=== PATIENT | male | born 1960 | race African-American/Black ===

== ENCOUNTER 2017-03-03 06:20 | Emergency (ER) | payer MEDICARE, OTHER ==
[~2017-03-03] VITALS: Ht 172.7 cm; Wt 69.0 kg
[~2017-03-03 06:20] MED LIST: BUPR100T5 PO; CARI350T27 PO; GABA300C PO; METO1TAB26 PO; OMEP20CA10 PO; OXYC30TA89 PO; QUET50TA11 PO; TIZA4CAP6 PO
[2017-03-03] MEDS ORDERED: MORPHINE SULFATE 10 MG/ML CPJ IM ONE (07:00)
[2017-03-03 09:39] VITALS: BP 169/117
== END 2017-03-03 10:51 | disposition home or self-care (01) ==
LOC: ER 06:47
DX: M54.5 Low back pain (principal); R11.0 Nausea; R42 Dizziness and giddiness; J44.9 Chronic obstructive pulmonary disease, unspecified; I10 Essential (primary) hypertension; W18.30XA Fall on same level, unspecified, initial encounter; Y93.02 Activity, running; Y92.89 Other specified places as the place of occurrence of the external cause; Y99.8 Other external cause status
CPT/HCPCS: 70450; 72125; 72131; 96372; 99284; J2270

== ENCOUNTER 2017-03-20 03:31 | Emergency (ER) | payer MEDICARE, OTHER ==
[~2017-03-20] VITALS: Ht 172.7 cm; Wt 77.0 kg
[2017-03-20] MEDS ORDERED: LORAZEPAM 1MG TABLET PO ONE (04:00)
[2017-03-20 04:31] LABS: HEMATOCRIT. 36.1 % (42.0-52.0); HEMOGLOBIN. 12.6 g/dL (14.0-18.0); MEAN CORPUSCULAR HEMOGLOBIN 30.6 pg (28.0-32.0); PLATELET 157 x1000/uL (130-400); RED BLOOD CELL COUNT 4.11 mill/uL (4.7-6.1)
[2017-03-20 04:39] LABS: CHLORIDE 98 mEq/L (98-107)
[2017-03-20 04:48] LABS: INR 1.1; PARTIAL THROMBOPLASTIN TIME 26.3 sec (24.0-34.0); PROTHROMBIN TIME 11.3 sec
[2017-03-20] MEDS ORDERED: DIVALPROEX SODIUM 500MG DR TABLET PO NR (05:30)
[2017-03-20 05:38] LABS: CARBON DIOXIDE 26 mEq/L (21-32)
[2017-03-20 05:54] LABS: ETHANOL BLOOD < 10 mg/dL
[2017-03-20] MEDS ORDERED: SODIUM CHLORIDE 0.9% 2,000 ML IV ONE (06:00)
[2017-03-20 06:01] LABS: PLATELET ESTIMATE NORMAL
[2017-03-20 08:32] LABS: CLARITY URINE CLEAR (CLEAR); COLOR URINE YELLOW (YELLOW); GLUCOSE URINE NEGATIVE (NEGATIVE); KETONES URINE NEGATIVE (NEGATIVE); LEUKOCYTE ESTERASE URINE NEGATIVE (NEGATIVE); NITRITE URINE NEGATIVE (NEGATIVE); OCCULT BLOOD URINE NEGATIVE (NEGATIVE); PROTEIN URINE TRACE (NEGATIVE); SPECIFIC GRAVITY URINE 1.018 (1.005-1.030); UROBILINOGEN URINE 0.2 E.U./dL (0.2-1.0)
[2017-03-20 08:42] LABS: *AMPHETAMINES SCREEN URINE NEGATIVE (NEGATIVE); *BARBITURATES SCREEN URINE NEGATIVE (NEGATIVE); *BENZODIAZEPINES SCREEN URINE NEGATIVE (NEGATIVE); *COCAINE SCREEN URINE NEGATIVE (NEGATIVE); CANNABINOID URINE SCREEN NEGATIVE (NEGATIVE); METHADONE URINE SCREEN NEGATIVE (NEGATIVE); OPIATES URINE SCREEN PRESUMTIVE POSITIVE (NEGATIVE); PHENCYCLIDINE URINE SCREEN NEGATIVE (NEGATIVE)
[2017-03-20 09:29] VITALS: BP 114/51
== END 2017-03-20 12:43 | disposition home or self-care (01) ==
LOC: ER 03:31
DX: F23 Brief psychotic disorder (principal); F20.9 Schizophrenia, unspecified
CPT/HCPCS: 36415; 70450; 80053; 80165; 80305; 80307; 80329; 81001; 85025; 85610; 85730; 93005; 96360; 96361; 99285; G0482; J7030

== ENCOUNTER 2017-03-21 12:15 | Inpatient (IN) | payer MEDICARE, OTHER ==
[~2017-03-21] VITALS: Ht 172.7 cm; Wt 66.7 kg
[2017-03-21 13:09] LABS: CLARITY URINE CLEAR (CLEAR); COLOR URINE YELLOW (YELLOW); GLUCOSE URINE NEGATIVE (NEGATIVE); KETONES URINE NEGATIVE (NEGATIVE); LEUKOCYTE ESTERASE URINE NEGATIVE (NEGATIVE); NITRITE URINE NEGATIVE (NEGATIVE); OCCULT BLOOD URINE NEGATIVE (NEGATIVE); PROTEIN URINE TRACE (NEGATIVE); UROBILINOGEN URINE 0.2 E.U./dL (0.2-1.0)
[2017-03-21 13:17] LABS: HEMATOCRIT. 32.1 % (42.0-52.0); HEMOGLOBIN. 10.8 g/dL (14.0-18.0); MEAN CORPUSCULAR HEMOGLOBIN 30.1 pg (28.0-32.0); MEAN CORPUSCULAR VOLUME 89.5 fL (80.0-94.0); MEAN PLATELET VOLUME 8.4 fl (7.4-10.4); PLATELET 117 x1000/uL (130-400); RED BLOOD CELL COUNT 3.59 mill/uL (4.7-6.1); RED CELL DISTRIBUTION WIDTH 15.9 % (11.6-14.6)
[2017-03-21 13:22] LABS: CHLORIDE 104 mEq/L (98-107)
[2017-03-21 13:31] LABS: CARBON DIOXIDE 26 mEq/L (21-32); ETHANOL BLOOD < 10 mg/dL
[2017-03-21 13:38] LABS: *AMPHETAMINES SCREEN URINE NEGATIVE (NEGATIVE); *BARBITURATES SCREEN URINE NEGATIVE (NEGATIVE); *BENZODIAZEPINES SCREEN URINE PRESUMTIVE POSITIVE (NEGATIVE); *COCAINE SCREEN URINE NEGATIVE (NEGATIVE); CANNABINOID URINE SCREEN NEGATIVE (NEGATIVE); METHADONE URINE SCREEN NEGATIVE (NEGATIVE); OPIATES URINE SCREEN PRESUMTIVE POSITIVE (NEGATIVE); PHENCYCLIDINE URINE SCREEN NEGATIVE (NEGATIVE)
[2017-03-21 13:41] LABS: PLATELET ESTIMATE SLIGHTLY DECREASED
[2017-03-21] MEDS ORDERED: ONDANSETRON HCL 4MG/2ML VIAL IV PRN ×2 (17:15→23:45)
[2017-03-21] MEDS ORDERED: ENOXAPARIN 40MG/0.4ML SYR SUBCUT SCH ×2 (17:15→20:15)
[2017-03-21] MEDS ORDERED: SODIUM CHLORIDE 0.9% 1,000 ML IV SCH (17:15)
[2017-03-21] MEDS ORDERED: CLONIDINE 0.1MG TABLET PO PRN (17:15)
[2017-03-21] MEDS ORDERED: IPRATROPIUM/ALBUTEROL 0.5-3(2.5)MG/3ML NEB INH PRN ×2 (17:15→23:45)
[2017-03-21] MEDS ORDERED: MAGNESIUM/ALUMINUM HYDROXIDE/SIMETHICONE 30ML UDC PO PRN ×2 (17:15→23:45)
[2017-03-21] MEDS ORDERED: DOCUSATE SODIUM 100MG CAPSULE PO PRN (17:15)
[2017-03-21] MEDS ORDERED: ACETAMINOPHEN 325MG TABLET PO PRN ×2 (17:15→23:45)
[2017-03-21] MEDS ORDERED: HYDROCODONE/ACETAMINOPHEN 5/325MG TABLET PO PRN (17:15)
[2017-03-21 20:30] VITALS: BP 146/89
[2017-03-21] MEDS ORDERED: OXYCODONE HCL 15 MG PO SCH (22:15)
[2017-03-21] MEDS: CARISOPRODOL 350 MG TABLET PO SCH (23:53)
[2017-03-21] MEDS: QUETIAPINE FUMARATE 50MG TABLET PO SCH (23:53)
[2017-03-21] MEDS: HYDROCODONE/ACETAMINOPHEN 5/325MG TABLET PO PRN (23:53)
[2017-03-21] MEDS: SODIUM CHLORIDE 0.9% 1,000 ML IV SCH (23:54)
[2017-03-22] VITALS: BP 129/70
[2017-03-22 04:00] VITALS: BP 173/79
[2017-03-22] MEDS: CLONIDINE 0.1MG TABLET PO PRN (04:24)
[2017-03-22] MEDS: OXYCODONE HCL 5MG TABLET PO PRN ×2 (04:25→20:46)
[2017-03-22] MEDS: CARISOPRODOL 350 MG TABLET PO SCH ×3 (06:33→22:43)
[2017-03-22 06:34] LABS: BASOPHILS % 0.6 % (0.0-2.0); EOSINOPHILS % 0.9 % (0.0-5.0); HEMATOCRIT. 31.7 % (42.0-52.0); LYMPHOCYTES % 37.7 % (20.0-50.0); MEAN CORPUSCULAR HEMOGLOBIN 30.3 pg (28.0-32.0); MEAN CORPUSCULAR VOLUME 87.6 fL (80.0-94.0); MEAN PLATELET VOLUME 8.1 fl (7.4-10.4); MONOCYTES % 12.1 % (2.0-8.0); NEUTROPHILS % 48.7 % (40.0-76.0); PLATELET 104 x1000/uL (130-400); RED BLOOD CELL COUNT 3.61 mill/uL (4.7-6.1); RED CELL DISTRIBUTION WIDTH 15.7 % (11.6-14.6)
[2017-03-22 08:00] VITALS: BP 114/66
[2017-03-22] MEDS: TIZANIDINE HCL 4MG TABLET PO SCH ×2 (08:39→16:55)
[2017-03-22] MEDS: GABAPENTIN 300MG CAPSULE PO SCH ×3 (08:39→16:56)
[2017-03-22] MEDS: HYDROCHLOROTHIAZIDE 25MG TABLET PO SCH (08:39)
[2017-03-22] MEDS: BUPROPION HCL 100MG SR TABLET PO SCH (08:39)
[2017-03-22] MEDS: OMEPRAZOLE 20MG CAPSULE EXTENDED RELEASE PO SCH (08:39)
[2017-03-22] MEDS: METOPROLOL TARTRATE 50MG TABLET PO SCH (08:39)
[2017-03-22] MEDS: SODIUM CHLORIDE 0.9% 1,000 ML IV SCH (08:40)
[2017-03-22 08:55] LABS: CREATINE KINASE 355 IU/L (39-308); CREATINE KINASE MB FRACTION 1.8 ng/mL (0.5-3.6); HDL CHOLESTEROL 43 mg/dL (40-59); LDL CHOLESTEROL 84 mg/dL (5-100); TROPONIN I < 0.02 ng/mL (0.00-0.04)
[2017-03-22] MEDS ORDERED: [UNRECOGNIZED DRUG - OTHER] PO SCH (09:00)
[2017-03-22] MEDS ORDERED: HYDROCHLOROTHIAZIDE PO SCH (09:00)
[2017-03-22] MEDS ORDERED: METOPROLOL TARTRATE PO SCH (09:00)
[2017-03-22] MEDS: ENOXAPARIN 30MG/0.3ML SYR SUBCUT SCH (09:00)
[2017-03-22] MEDS ORDERED: TIZANIDINE HCL 4 MG PO SCH (09:00)
[2017-03-22 12:00] VITALS: BP 93/46
[2017-03-22 16:00] VITALS: BP 107/50
[2017-03-22] MEDS: HYDROCODONE/ACETAMINOPHEN 5/325MG TABLET PO PRN (17:01)
[2017-03-22 20:00] VITALS: BP 113/63
[2017-03-22] MEDS: QUETIAPINE FUMARATE 50MG TABLET PO SCH (22:43)
[2017-03-23] VITALS: BP 106/64
[2017-03-23 04:00] VITALS: BP 115/66
[2017-03-23] MEDS: OXYCODONE HCL 5MG TABLET PO PRN ×2 (04:24→20:30)
[2017-03-23] MEDS: CARISOPRODOL 350 MG TABLET PO SCH ×3 (06:43→21:08)
[2017-03-23] MEDS: SODIUM CHLORIDE 0.9% 1,000 ML IV SCH ×2 (06:43→18:42)
[2017-03-23 07:02] LABS: EOSINOPHILS % 0.9 % (0.0-5.0); HEMATOCRIT. 31.6 % (42.0-52.0); LYMPHOCYTES % 35.9 % (20.0-50.0); MEAN CORPUSCULAR HEMOGLOBIN 30.6 pg (28.0-32.0); MEAN CORPUSCULAR VOLUME 87.8 fL (80.0-94.0); MEAN PLATELET VOLUME 8.5 fl (7.4-10.4); MONOCYTES % 11.9 % (2.0-8.0); NEUTROPHILS % 50.3 % (40.0-76.0); PLATELET 116 x1000/uL (130-400); RED CELL DISTRIBUTION WIDTH 15.9 % (11.6-14.6)
[2017-03-23] MEDS: GABAPENTIN 300MG CAPSULE PO SCH ×3 (09:00→18:41)
[2017-03-23] MEDS: TIZANIDINE HCL 4MG TABLET PO SCH ×2 (09:02→18:41)
[2017-03-23] MEDS: OMEPRAZOLE 20MG CAPSULE EXTENDED RELEASE PO SCH (09:02)
[2017-03-23] MEDS: METOPROLOL TARTRATE 50MG TABLET PO SCH (09:02)
[2017-03-23] MEDS: ENOXAPARIN 30MG/0.3ML SYR SUBCUT SCH (09:02)
[2017-03-23] MEDS: BUPROPION HCL 100MG SR TABLET PO SCH (09:02)
[2017-03-23] MEDS: HYDROCHLOROTHIAZIDE 25MG TABLET PO SCH (09:03)
[2017-03-23 09:13] VITALS: BP 132/67
[2017-03-23 12:00] VITALS: BP 102/60
[2017-03-23 16:00] VITALS: BP 146/86
[2017-03-23 20:00] VITALS: BP 166/83
[2017-03-23] MEDS: QUETIAPINE FUMARATE 50MG TABLET PO SCH (20:30)
[2017-03-24] VITALS (8 sets, daily range): BP systolic 135–178; BP diastolic 68–100
[2017-03-24] MEDS: OXYCODONE HCL 5MG TABLET PO PRN (04:43)
[2017-03-24] MEDS: CLONIDINE 0.1MG TABLET PO PRN ×2 (04:43→20:28)
[2017-03-24] MEDS: CARISOPRODOL 350 MG TABLET PO SCH ×3 (05:20→21:42)
[2017-03-24 06:19] LABS: BASOPHILS % 0.6 % (0.0-2.0); EOSINOPHILS % 0.8 % (0.0-5.0); HEMATOCRIT. 34.5 % (42.0-52.0); HEMOGLOBIN. 11.7 g/dL (14.0-18.0); LYMPHOCYTES % 35.2 % (20.0-50.0); MEAN CORPUSCULAR HEMOGLOBIN 29.7 pg (28.0-32.0); MEAN CORPUSCULAR VOLUME 87.9 fL (80.0-94.0); MEAN PLATELET VOLUME 8.8 fl (7.4-10.4); MONOCYTES % 12.3 % (2.0-8.0); NEUTROPHILS % 51.1 % (40.0-76.0); PLATELET 127 x1000/uL (130-400); RED BLOOD CELL COUNT 3.93 mill/uL (4.7-6.1); RED CELL DISTRIBUTION WIDTH 15.4 % (11.6-14.6)
[2017-03-24 07:02] LABS: PHOSPHORUS 2.1 mg/dL (2.5-4.9)
[2017-03-24] MEDS: BUPROPION HCL 100MG SR TABLET PO SCH (08:37)
[2017-03-24] MEDS: OMEPRAZOLE 20MG CAPSULE EXTENDED RELEASE PO SCH (08:37)
[2017-03-24] MEDS: TIZANIDINE HCL 4MG TABLET PO SCH ×2 (08:38→17:44)
[2017-03-24] MEDS: METOPROLOL TARTRATE 50MG TABLET PO SCH (08:38)
[2017-03-24] MEDS: HYDROCHLOROTHIAZIDE 25MG TABLET PO SCH (08:44)
[2017-03-24] MEDS: GABAPENTIN 300MG CAPSULE PO SCH ×3 (08:44→17:44)
[2017-03-24] MEDS: ENOXAPARIN 30MG/0.3ML SYR SUBCUT SCH (08:47)
[2017-03-24] MEDS: HYDROCODONE/ACETAMINOPHEN 5/325MG TABLET PO PRN ×2 (09:14→20:28)
[2017-03-24] MEDS ORDERED: SODIUM POLYSTYRENE SULFONATE 15 G/60 ML BOT PO NR (10:00)
[2017-03-24] MEDS ORDERED: SODIUM PHOS,M-BASIC-D-BASIC 10 MM in DEXT 5% WATER 246.6667 ML IV NR (12:00)
[2017-03-24] MEDS: SODIUM CHLORIDE 0.9% 1,000 ML IV SCH (12:58)
[2017-03-24] MEDS: QUETIAPINE FUMARATE 50MG TABLET PO SCH (20:28)
[2017-03-25] VITALS: BP 159/85
[2017-03-25] MEDS: OXYCODONE HCL 5MG TABLET PO PRN (00:42)
[2017-03-25 04:00] VITALS: BP 146/82
[2017-03-25 04:32] VITALS: BP 146/81
[2017-03-25] MEDS: HYDROCODONE/ACETAMINOPHEN 5/325MG TABLET PO PRN (04:32)
== END 2017-03-25 05:15 | DRG 314 ==
LOC: ER 12:33 → 7WST 17:22 → ENRESERV 19:35 → ER 20:14 → CANBEDREQ 21:06
PROVIDERS: ADMIT Internal Medicine; ATTEND Internal Medicine
DX: I95.9 Hypotension, unspecified (principal); N17.0 Acute kidney failure with tubular necrosis; F20.9 Schizophrenia, unspecified; I12.9 Hypertensive chronic kidney disease with stage 1 through stage 4 chronic kidney disease, or unspecified chronic kidney disease; E86.9 Volume depletion, unspecified; G40.909 Epilepsy, unspecified, not intractable, without status epilepticus; G89.29 Other chronic pain; D64.9 Anemia, unspecified; J44.9 Chronic obstructive pulmonary disease, unspecified; N18.9 Chronic kidney disease, unspecified; M79.673 Pain in unspecified foot; Z79.899 Other long term (current) drug therapy
CPT/HCPCS: 36415; 70450; 73502; 80048; 80053; 80061; 80165; 80305; 80307; 80329; 81001; 82550; 82553; 83735; 84100; 84443; 84484; 85025; 85610; 85730; 93005; 93970; 97110; 97163; 97165; 97530; 99285; G0482; J1650; J3490; J7030; J7060

== ENCOUNTER 2017-06-29 03:35 | Emergency (ER) | payer MEDICARE, OTHER ==
[~2017-06-29] VITALS: Ht 177.8 cm; Wt 72.0 kg
[~2017-06-29 03:35] MED LIST changes: +QUET50TA PO; -QUET50TA11 PO
[2017-06-29 04:57] LABS: HEMATOCRIT. 36.4 % (42.0-52.0); HEMOGLOBIN. 12.5 g/dL (14.0-18.0); MEAN CORPUSCULAR HEMOGLOBIN 32.2 pg (28.0-32.0); MEAN PLATELET VOLUME 8.9 fl (7.4-10.4); PLATELET 135 x1000/uL (130-400); RED BLOOD CELL COUNT 3.87 mill/uL (4.7-6.1); RED CELL DISTRIBUTION WIDTH 16.3 % (11.6-14.6)
[2017-06-29] MEDS: LORAZEPAM 1MG TABLET PO ONE (04:59)
[2017-06-29] MEDS: IBUPROFEN 600MG TABLET PO ONE (05:00)
[2017-06-29 05:10] LABS: CARBON DIOXIDE 27 mEq/L (21-32); CHLORIDE 106 mEq/L (98-107)
[2017-06-29 05:48] LABS: PLATELET ESTIMATE NORMAL
[2017-06-29 06:30] VITALS: BP 158/108
== END 2017-06-29 06:34 | disposition home or self-care (01) ==
LOC: ER 03:35
DX: L03.115 Cellulitis of right lower limb (principal); I16.0 Hypertensive urgency; I10 Essential (primary) hypertension; F32.9 Major depressive disorder, single episode, unspecified; F41.9 Anxiety disorder, unspecified
CPT/HCPCS: 36415; 80053; 85025; 99284

== ENCOUNTER 2018-03-12 09:16 | Emergency (ER) | payer MEDICARE, OTHER ==
[~2018-03-12] VITALS: Ht 172.7 cm; Wt 63.0 kg
[2018-03-12 10:48] VITALS: BP 162/94
== END 2018-03-12 11:12 | disposition home or self-care (01) ==
LOC: ER 09:45
DX: S11.81XD Laceration without foreign body of other specified part of neck, subsequent encounter (principal); I10 Essential (primary) hypertension; X58.XXXD Exposure to other specified factors, subsequent encounter; Z79.899 Other long term (current) drug therapy
CPT/HCPCS: 99283